=== PATIENT | female | born 1940 | race Caucasian/White ===

== ENCOUNTER 2017-10-14 14:09 | Observation (INO) | payer MEDICARE, BC ==
[~2017-10-14] VITALS: Ht 175.3 cm; Wt 88.6 kg
[~2017-10-14 14:09] MED LIST: AZIT250; CITA20 PO; CYAN1000I IM; Calcium 600 MG1 EACH PO; FLUO20 PO; HYDACE5 PO; LEVO-T50 MCG PO; NITR100CA PO; OMEP20ER PO; PRAV10 PO; PROM25 PO; Percocet 5-3251 EACH PO; Prozac20 MG PO; Pyridium200 MG PO; TIOT18 INH; TOCO400 PO; Vitamin B-122000 MCG PO; Vitamin D2000 UNIT PO; ZYRTEC10 M2 PO
[2017-10-14] MEDS ORDERED: ALBU2.5V5 (15:39)
[2017-10-14 16:06] LABS: BASOPHILS ABSOLUTE AUTO 0.04 K/mm3 (0.00-0.23); BASOPHILS PERCENT AUTO 0 % (0-2); EOSINOPHILS ABSOLUTE AUTO 0.42 K/mm3 (0.00-0.68); EOSINOPHILS PERCENT AUTO 4 % (0-6); Hematocrit 38.5 % (33.0-51.0); Hemoglobin 12.7 g/dL (11.5-16.0); IMMATURE GRAN ABSOLUTE AUTO 0.06 K/mm3 (0.00-0.10); IMMATURE GRAN PERCENT AUTO 1 % (0-1); LYMPHOCYTES ABSOLUTE AUTO 1.34 K/mm3 (0.84-5.20); LYMPHOCYTES PERCENT AUTO 13 % (21-46); MONOCYTES ABSOLUTE AUTO 0.52 K/mm3 (0.16-1.47); MONOCYTES PERCENT AUTO 5 % (4-13); Mean Corpuscular HGB 30.7 pg (26.0-34.0); Mean Corpuscular Volume 93 fL (80-100); NEUTROPHILS ABSOLUTE AUTO 7.84 K/mm3 (1.96-9.15); NEUTROPHILS PERCENT AUTO 77 % (41-73); Platelet Count 242 K/mm3 (150-400); RDW Coefficient Variation 13.3 % (11.7-14.2); RDW Standard Deviation 45.1 fL (35.1-46.3); Red Blood Cell Count 4.14 M/mm3 (3.80-5.20); White Blood Cell Count 10.22 K/mm3 (4.00-11.30)
[2017-10-14 16:30] LABS: Alanine Aminotransfer (ALT/SGP 19 U/L (12-78); Albumin, Blood 3.9 g/dL (3.4-5.0); Albumin/Globulin Ratio 1.4 (0.8-1.8); Alk Phos 95 U/L (50-136); Anion Gap 9 mmol/L (6-16); Aspartate Aminotrans (AST/SGOT 14 U/L (12-37); Bilirubin, Total 0.4 mg/dL (0.1-1.0); Blood Urea Nitrogen 22 mg/dL (8-24); Bun/Creatinine Ratio 17.7 (12.0-20.0); CO2, Blood 23 mmol/L (21-32); Calcium, Blood 9.3 mg/dL (8.5-10.1); Chloride, Blood 109 mmol/L (98-108); Creatinine, Blood 1.24 mg/dL (0.40-1.00); Globulin, Blood 2.7 g/dL (2.2-4.0); Glomerular Filtration Rate 44 (60-); Glucose, Blood 94 mg/dL (70-99); Potassium, Blood 4.1 mmol/L (3.5-5.5); Sodium, Blood 141 mmol/L (136-145); Total Protein, Blood 6.6 g/dL (6.4-8.2); Troponin I <0.015 ng/mL (0.000-0.040)
[2017-10-14 16:50] LABS: Source, Urine Clean Catch
[2017-10-14 16:54] LABS: Bilirubin, Urine Neg (Neg); Blood, Urine Neg (Neg); Glucose Qualitative, Urine Neg (Neg); Ketones, Urine Neg (Neg); Leukocyte Esterase, Urine Neg (Neg); Nitrite, Urine Neg (Neg); Protein, Urine Neg (Neg); Urobilinogen, Urine NORM (Normal)
[2017-10-14 17:26] LABS: Appearance, Urine Clear (Clear); Color, Urine Pale Yellow (P-Yellow)
[2017-10-15 05:57] LABS: BASOPHILS ABSOLUTE AUTO 0.06 K/mm3 (0.00-0.23); BASOPHILS PERCENT AUTO 1 % (0-2); EOSINOPHILS ABSOLUTE AUTO 0.57 K/mm3 (0.00-0.68); EOSINOPHILS PERCENT AUTO 6 % (0-6); Hematocrit 38.1 % (33.0-51.0); Hemoglobin 12.8 g/dL (11.5-16.0); IMMATURE GRAN ABSOLUTE AUTO 0.05 K/mm3 (0.00-0.10); IMMATURE GRAN PERCENT AUTO 1 % (0-1); LYMPHOCYTES ABSOLUTE AUTO 1.91 K/mm3 (0.84-5.20); LYMPHOCYTES PERCENT AUTO 19 % (21-46); MONOCYTES ABSOLUTE AUTO 0.94 K/mm3 (0.16-1.47); MONOCYTES PERCENT AUTO 9 % (4-13); Mean Corpuscular HGB 30.5 pg (26.0-34.0); Mean Corpuscular HGB Conc 33.6 g/dL (31.5-36.5); Mean Corpuscular Volume 91 fL (80-100); Mean Platelet Volume 9.4 fL (9.1-12.4); NEUTROPHILS ABSOLUTE AUTO 6.43 K/mm3 (1.96-9.15); NEUTROPHILS PERCENT AUTO 65 % (41-73); Platelet Count 216 K/mm3 (150-400); RDW Coefficient Variation 13.2 % (11.7-14.2); RDW Standard Deviation 43.6 fL (35.1-46.3); Red Blood Cell Count 4.19 M/mm3 (3.80-5.20); White Blood Cell Count 9.96 K/mm3 (4.00-11.30)
[2017-10-15 06:39] LABS: Albumin, Blood 3.3 g/dL (3.4-5.0); Albumin/Globulin Ratio 1.2 (0.8-1.8); Bilirubin, Total 0.4 mg/dL (0.1-1.0); Bun/Creatinine Ratio 18.3 (12.0-20.0); Calcium, Blood 8.8 mg/dL (8.5-10.1); Creatinine, Blood 1.15 mg/dL (0.40-1.00); Globulin, Blood 2.8 g/dL (2.2-4.0); Potassium, Blood 4.5 mmol/L (3.5-5.5); Total Protein, Blood 6.1 g/dL (6.4-8.2)
[2017-10-16 06:09] LABS: Hematocrit 34.3 % (33.0-51.0); Hemoglobin 11.8 g/dL (11.5-16.0); Mean Corpuscular HGB 33.4 pg (26.0-34.0); Mean Corpuscular HGB Conc 34.4 g/dL (31.5-36.5); Mean Platelet Volume 10.1 fL (9.1-12.4); Platelet Count 195 K/mm3 (150-400); RDW Coefficient Variation 15.1 % (11.7-14.2); Red Blood Cell Count 3.53 M/mm3 (3.80-5.20); White Blood Cell Count 7.26 K/mm3 (4.00-11.30)
[2017-10-16 06:10] LABS: Mean Corpuscular Volume 97 fL (80-100)
[2017-10-16 06:27] LABS: Bun/Creatinine Ratio 16.8 (12.0-20.0); Calcium, Blood 8.3 mg/dL (8.5-10.1); Creatinine, Blood 1.19 mg/dL (0.40-1.00); Potassium, Blood 4.4 mmol/L (3.5-5.5)
[2017-10-16] MEDS ORDERED: ASPI81CH PO (11:24)
== END 2017-10-16 13:01 | disposition home or self-care (01) ==
LOC: ER 14:09 → MEDS 14:10 → ENPENDDIS 10-16 10:00 → MEDS 10-16 13:01
PROVIDERS: Emergency Medicine; Internal Medicine
DX: R55 Syncope and collapse (principal); S93.401A Sprain of unspecified ligament of right ankle, initial encounter; N18.3 Chronic kidney disease, stage 3 (moderate); I77.9 Disorder of arteries and arterioles, unspecified; M54.9 Dorsalgia, unspecified; F32.9 Major depressive disorder, single episode, unspecified; G89.29 Other chronic pain; Z88.0 Allergy status to penicillin; Z88.1 Allergy status to other antibiotic agents; Z88.5 Allergy status to narcotic agent; Z88.8 Allergy status to other drugs, medicaments and biological substances; Z79.82 Long term (current) use of aspirin; Z79.899 Other long term (current) drug therapy; Z87.891 Personal history of nicotine dependence
CPT/HCPCS: 29515; 36415; 71046; 73610; 80048; 80053; 81003; 82533; 84484; 85025; 85027; 93005; 93010; 93306; 93880; 94640; 94760; 96361; 96372; 96374; 97116; 97162; 97530; 99285; G0378; G8978; G8979; J1650; J3010; J7030; L1906

== ENCOUNTER 2019-04-05 12:27 | Emergency (ER) | payer MEDICARE, OTHER ==
[~2019-04-05] VITALS: Ht 177.8 cm; Wt 86.2 kg
[~2019-04-05 12:27] MED LIST changes: +ALBU2.5V5 INH; +ASPI81CH PO
[2019-04-05 12:55] LABS: Calcium, Ionized (POC) 1.14 mmol/L (1.10-1.46); Chloride (POC) 111 mmol/L (98-108); Creatinine (POC) 1.7 mg/dL (0.6-1.0); Glucose (ISTAT POC) 78 mg/dL (70-99); Hemoglobin (POC) 10.5 g/dL (12.0-16.0); Potassium (POC) 3.9 mmol/L (3.5-5.5); Sodium (POC) 140 mmol/L (135-148); Total CO2 (POC) 19 mmol/L (21-32)
== END 2019-04-05 14:19 | disposition home or self-care (01) ==
LOC: ER 12:27
DX: R55 Syncope and collapse (principal); R42 Dizziness and giddiness; Z88.5 Allergy status to narcotic agent; Z88.0 Allergy status to penicillin; Z88.1 Allergy status to other antibiotic agents; Z79.899 Other long term (current) drug therapy; Z79.82 Long term (current) use of aspirin; J44.9 Chronic obstructive pulmonary disease, unspecified; E03.9 Hypothyroidism, unspecified
CPT/HCPCS: 36415; 80047; 85014; 93005; 93010; 99284-25

== ENCOUNTER → 2021-01-24 | Outpatient (CLI) | payer MEDICARE, OTHER | LOC: LAB 10:50 → LAB SHORT 10:50 | DX: L08.9 Local infection of the skin and subcutaneous tissue, unspecified (principal); Z71.89 Other specified counseling | CPT/HCPCS: 87070; 87205 ==

== ENCOUNTER → 2021-10-09 | Outpatient (CLI) | payer MEDICARE | LOC: LAB SHORT 14:40 → PLD 14:40 | DX: C44.629 Squamous cell carcinoma of skin of left upper limb, including shoulder (principal); L30.8 Other specified dermatitis | CPT/HCPCS: 88312 ==

== ENCOUNTER 2022-03-04 08:19 | Day surgery (SDC) | payer MEDICARE ==
[~2022-03-04] VITALS: Ht 171.5 cm; Wt 77.5 kg
[~2022-03-04 08:19] MED LIST changes: +BENADRYL25 MG PO; +EUTHYROX50 MCG PO; +GABA300 PO; +INCRUSE ELLIPTA INH; -LEVO-T50 MCG PO; +MYRBETRIQ50 MG PO; +SERT50 PO; +TRAM50 PO; +TURMERIC500 M2 PO; +VITAMIN B125000 MC1 PO; +ZOCOR20 MG PO
--- NOTE | 2022-03-04 11:50 | NUR ---
Ambulatory in Day Surgery History, Chart, Medications and Allergies reviewed before start of procedure.Patient confirms NPO status and agrees with scheduled surgery. Pre-Op teaching done. Pt verbalizes understanding.
--- NOTE | 2022-03-04 12:05 | NUR ---
[facility] 2G SENT TO SURGERY C PT. 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 CONFIRMED WITH DR GONZALEZ ANCEF IS SAFE TO GIVE.
--- NOTE | 2022-03-04 13:24 | NUR ---
03/04/22 1324 Robert Davila RASH NOTED ON LOWER ABD AND RIGHT THIGH
--- NOTE | 2022-03-04 17:30 | NUR ---
ELEVATED BLOOD PRESSURE PT HAD ELEVATED BLOOD PRESSURE POST OP, PT ASYMPTOMATIC. PT DENIED PAIN BUT REPORTED HAVING A STRESSFUL DAY. SHE ALSO DENIES HX OF HTN. SHE STATES HER BP IS NORMALLY LOW. AT TIME OF ARRIVAL TO THE ROOM HER BP WAS 184/73. MONITORED BY FOR SOME TIME AFTER PT ARRIVED, BP REMAINED ELEVATED AND DR. GONAZLEZ NOTIFIED. DR. GONZALEZ STATED OK FOR HOSPITALIST CONSULT. BP BEGAN TO DROP AND AT 1722 WAS 156/72. DR. GONZALEZ WAS AGAIN NOTIFIED AND HOSPITALIS CONSULT WAS CANCELLED SINCE BP IMPROVED.
--- NOTE | 2022-03-04 18:31 | NUR ---
PT ARRIVED TO THE UNIT AT 1525. PT ALERT AND ORIENTED AT TIME OF ARRIVAL. PT HAD DECREASED SENSATION AND MOVEMENT TO BLE R/T SPINAL ANESTHESIA, SENSATION AND MOVEMENT IMPROVING. BP ELEVATED, DR. GONZALEZ WAS NOTIFIED. ORDER TO CONSULT HOSPITALIST, BP IMPROVED AND HOSPITALIST CONSULT CANCELLED. WILL CONTINUE TO MONITOR UNTIL REPORT TO NOC RN.
--- NOTE | 2022-03-04 20:04 | NUR ---
SHIFT SUMMARY PT IS POD#0 FROM L TKA WITH DR. GONZALEZ. PAIN HAS BEEN DIFFICULT TO MANAGE, PT WAS GIVEN OXYCODONE 5MG, PT REPORTED NO IMPROVEMENT IN PAIN. FENTANYL GIVEN FOR PAIN, PT AGAIN REPORTED NO IMPROVMENT; HOWEVER, SHE APPEARED MUCH LESS RESTLESS IN BED, AND SHE WAS SMILING AND LAUGHING WITH STAFF. PT TOLERATING PO; SHE DID REPORT MILD NAUSEA AFTER TAKING OXYCODONE, PT REPORTS THAT RESOLVED WITHOUT INTERVENTION. REPORT GIVEN TO LEIGH MCDONNELL RN.
--- NOTE | 2022-03-04 21:33 | NUR ---
BP: PT BP REMAINS ELEVATED DESPITE BEING MEDICATED FOR LLE PAIN. PT DENIES CP/PRESSURE/SOB. HOSPITALIST CONSULT PLACED, DR LOAIZA NOTIFIED. NEW ORDER FOR 1X DOSE OF HYDRALAZINE.
[2022-03-05 04:57] LABS: BASOPHILS ABSOLUTE AUTO 0.05 K/mm3 (0.00-0.23); BASOPHILS PERCENT AUTO 1 % (0-2); EOSINOPHILS ABSOLUTE AUTO 0.54 K/mm3 (0.00-0.68); EOSINOPHILS PERCENT AUTO 6 % (0-6); Hematocrit 34.1 % (33.0-51.0); Hemoglobin 10.6 g/dL (11.5-16.0); IMMATURE GRAN ABSOLUTE AUTO 0.04 K/mm3 (0.00-0.10); IMMATURE GRAN PERCENT AUTO 0 % (0-1); LYMPHOCYTES ABSOLUTE AUTO 0.94 K/mm3 (0.84-5.20); LYMPHOCYTES PERCENT AUTO 10 % (21-46); MONOCYTES ABSOLUTE AUTO 0.65 K/mm3 (0.16-1.47); MONOCYTES PERCENT AUTO 7 % (4-13); Mean Corpuscular HGB Conc 31.1 g/dL (31.5-36.5); Mean Corpuscular Volume 100 fL (80-100); Mean Platelet Volume 9.3 fL (9.1-12.4); NEUTROPHILS ABSOLUTE AUTO 6.81 K/mm3 (1.96-9.15); NEUTROPHILS PERCENT AUTO 75 % (41-73); Platelet Count 264 K/mm3 (150-400); RDW Coefficient Variation 14.4 % (11.7-14.2); RDW Standard Deviation 52.5 fL (35.1-46.3); Red Blood Cell Count 3.42 M/mm3 (3.80-5.20); White Blood Cell Count 9.03 K/mm3 (4.00-11.30)
[2022-03-05 05:11] LABS: Bun/Creatinine Ratio 12.6 (12.0-20.0); Calcium, Blood 8.3 mg/dL (8.5-10.1); Creatinine, Blood 1.59 mg/dL (0.40-1.00); Potassium, Blood 4.6 mmol/L (3.5-5.5)
--- NOTE | 2022-03-05 08:00 | NUR ---
POD 1 S/P L TKA. PT BP ELEVATED EARLY IN SHIFT, HOSPITALIST CONSULTED, PT MEDICATED W/NEW BP MEDS W/NOTED IMPROVEMENT. DRESSING CDI. PT DENIED N/V, CAP REFILL WNL. PT STRUGGLED W/PAIN MGMT. PAIN MGD W/2 OXYCODONE, PT DID REQ IV BREAKTHROUGH PAIN MEDS X2 DURING NIGHT. PT REPOSITIONED FOR COMFORT. PT DEAN REG PO, DENEID N/V, IS VOIDING URINE W/O DIFFICULTY. PLAN TO MOBILIZE W/PT AND D/C HOME.
[2022-03-05] MEDS ORDERED: OXYC5 PO (12:55)
[2022-03-05] MEDS ORDERED: ACET500 PO (12:57)
--- NOTE | 2022-03-05 13:13 | NUR ---
IV LFA D/C'D INTACT, SITE CLEAR.
--- NOTE | 2022-03-05 13:30 | NUR ---
PATIENT D/C'D HOME AT THIS TIME, STATES UNDERSTANDING OF MEDS, WOUND CARE, ACTIVITY, OP PT, FOLLOW UP APPT, ETC, NO C/O AT THIS TIME.
--- NOTE | 2022-03-05 14:30 | NUR ---
DR. NEWSOME NOTIFIED THAT PT DISCHARGED. HE STATED HE HAD TALKED WITH THE PATIENT ABOUT HER ELEVATED BLOOD PRESSURE AND EDUCATED HER TO FOLLOW UP WITH HER PRIMARY CARE DOCTOR REGARDING ELEVATED BLOOD PRESSURE.
== END 2022-03-05 13:30 | disposition home or self-care (01) ==
LOC: ORSCMMR 08:19 → SURS 08:19 → ORSCMMR 08:22 → ORD 11:00 → ORSCMMR 14:15 → ORD 14:15 → SURS 15:26 → ORSCMMR 03-05 13:30
PROVIDERS: Orthopaedic Surgery
PROC: 8E0Y0CZ Robotic Assisted Procedure of Lower Extremity, Open Approach (ICD-10-PCS; principal; 2022-03-04 13:00)
PROC: 0SRD0JA Replacement of Left Knee Joint with Synthetic Substitute, Uncemented, Open Approach (ICD-10-PCS; principal; 2022-03-04 13:00)
DX: M17.12 Unilateral primary osteoarthritis, left knee (principal); N18.9 Chronic kidney disease, unspecified; I25.10 Atherosclerotic heart disease of native coronary artery without angina pectoris; E03.9 Hypothyroidism, unspecified; J44.9 Chronic obstructive pulmonary disease, unspecified; Z86.16 Personal history of COVID-19; Z79.899 Other long term (current) drug therapy
CPT/HCPCS: 27447; 20985; S2900; 36415; 73560-LT; 80048; 83735; 85025; 94640; 94664; 97110; 97116; 97161; 97530; A9270; C1776; J0171; J0360; J0690; J0735; J1170; J1885; J2405; J2704; J2795; J3010; J7120

== ENCOUNTER 2022-03-11 15:14 | Emergency (ER) | payer MEDICARE ==
[~2022-03-11] VITALS: Ht 167.6 cm; Wt 74.8 kg
[~2022-03-11 15:14] MED LIST changes: +ACET500 PO; +OXYC5 PO
[2022-03-11 16:58] LABS: Bun/Creatinine Ratio 16.9 (12.0-20.0); Calcium, Blood 8.7 mg/dL (8.5-10.1); Creatinine, Blood 1.6 mg/dL (0.40-1.00); Potassium, Blood 4.1 mmol/L (3.5-5.5)
[2022-03-11 17:50] LABS: BASOPHILS ABSOLUTE AUTO 0.07 K/mm3 (0.00-0.23); BASOPHILS PERCENT AUTO 1 % (0-2); EOSINOPHILS ABSOLUTE AUTO 1.05 K/mm3 (0.00-0.68); EOSINOPHILS PERCENT AUTO 9 % (0-6); Hematocrit 32.2 % (33.0-51.0); Hemoglobin 10.4 g/dL (11.5-16.0); IMMATURE GRAN ABSOLUTE AUTO 0.11 K/mm3 (0.00-0.10); IMMATURE GRAN PERCENT AUTO 1 % (0-1); LYMPHOCYTES ABSOLUTE AUTO 1.09 K/mm3 (0.84-5.20); LYMPHOCYTES PERCENT AUTO 9 % (21-46); MONOCYTES ABSOLUTE AUTO 1.01 K/mm3 (0.16-1.47); MONOCYTES PERCENT AUTO 9 % (4-13); Mean Corpuscular HGB 31.2 pg (26.0-34.0); Mean Corpuscular HGB Conc 32.3 g/dL (31.5-36.5); Mean Corpuscular Volume 97 fL (80-100); Mean Platelet Volume 9.1 fL (9.1-12.4); NEUTROPHILS ABSOLUTE AUTO 8.36 K/mm3 (1.96-9.15); NEUTROPHILS PERCENT AUTO 72 % (41-73); Platelet Count 341 K/mm3 (150-400); RDW Coefficient Variation 13.6 % (11.7-14.2); RDW Standard Deviation 48.3 fL (35.1-46.3); Red Blood Cell Count 3.33 M/mm3 (3.80-5.20); White Blood Cell Count 11.69 K/mm3 (4.00-11.30)
== END 2022-03-11 18:16 | disposition home or self-care (01) ==
LOC: ER 15:14
PROVIDERS: Student in an Organized Health Care Education/Training Program
DX: I95.1 Orthostatic hypotension (principal); D64.9 Anemia, unspecified; N28.9 Disorder of kidney and ureter, unspecified; R42 Dizziness and giddiness; E03.9 Hypothyroidism, unspecified; J44.9 Chronic obstructive pulmonary disease, unspecified; Z88.5 Allergy status to narcotic agent; Z88.0 Allergy status to penicillin; Z88.1 Allergy status to other antibiotic agents; Z88.8 Allergy status to other drugs, medicaments and biological substances; Z91.09 Other allergy status, other than to drugs and biological substances; Z79.890 Hormone replacement therapy; Z79.82 Long term (current) use of aspirin; Z79.899 Other long term (current) drug therapy
CPT/HCPCS: 80048; 85025; 93005; 93010; 99284-25

== ENCOUNTER 2022-04-03 10:06 | Day surgery (SDC) | payer MEDICARE ==
[~2022-04-03] VITALS: Ht 175.3 cm; Wt 74.3 kg
[2022-04-03] MEDS ORDERED: TRAM50 (10:35)
[2022-04-03] MEDS ORDERED: MYRBETRIQ50 MG (10:37)
[2022-04-03] MEDS ORDERED: GABA300 (10:37)
--- NOTE | 2022-04-03 12:09 | NUR ---
04/03/22 1209 JUANCHO LEI- 48, 52 USED
== END 2022-04-03 12:33 | disposition home or self-care (01) ==
LOC: ORSCSDS 10:06
PROVIDERS: Internal Medicine Gastroenterology
PROC: 0D748ZZ Dilation of Esophagogastric Junction, Via Natural or Artificial Opening Endoscopic (ICD-10-PCS; principal; 2022-04-03 11:30)
DX: R13.10 Dysphagia, unspecified (principal); K22.2 Esophageal obstruction; I25.10 Atherosclerotic heart disease of native coronary artery without angina pectoris; J44.9 Chronic obstructive pulmonary disease, unspecified; Z87.891 Personal history of nicotine dependence; N18.9 Chronic kidney disease, unspecified; E03.9 Hypothyroidism, unspecified; Z79.899 Other long term (current) drug therapy; Z79.82 Long term (current) use of aspirin
CPT/HCPCS: C1726; J2704; J7120

== ENCOUNTER 2023-01-08 20:40 | Emergency (ER) | payer MEDICARE ==
[~2023-01-08] VITALS: Ht 172.7 cm; Wt 82.5 kg
[~2023-01-08 20:40] MED LIST changes: +GABA300; +MYRBETRIQ50 MG; +TRAM50
[2023-01-08 21:35] LABS: BASOPHILS ABSOLUTE AUTO 0.05 K/mm3 (0.00-0.23); BASOPHILS PERCENT AUTO 0 % (0-2); EOSINOPHILS ABSOLUTE AUTO 0.22 K/mm3 (0.00-0.68); EOSINOPHILS PERCENT AUTO 1 % (0-6); Hematocrit 26.1 % (33.0-51.0); Hemoglobin 9.7 g/dL (11.5-16.0); IMMATURE GRAN ABSOLUTE AUTO 0.54 K/mm3 (0.00-0.10); IMMATURE GRAN PERCENT AUTO 2 % (0-1); LYMPHOCYTES ABSOLUTE AUTO 0.52 K/mm3 (0.84-5.20); LYMPHOCYTES PERCENT AUTO 2 % (21-46); MONOCYTES ABSOLUTE AUTO 0.71 K/mm3 (0.16-1.47); MONOCYTES PERCENT AUTO 3 % (4-13); Mean Corpuscular HGB Conc 37.2 g/dL (31.5-36.5); Mean Corpuscular Volume 100 fL (80-100); Mean Platelet Volume 10.2 fL (9.1-12.4); NEUTROPHILS ABSOLUTE AUTO 20.31 K/mm3 (1.96-9.15); NEUTROPHILS PERCENT AUTO 91 % (41-73); Platelet Count 224 K/mm3 (150-400); RDW Standard Deviation 48.2 fL (35.1-46.3); Red Blood Cell Count 2.62 M/mm3 (3.80-5.20); White Blood Cell Count 22.35 K/mm3 (4.00-11.30)
[2023-01-08 21:50] LABS: Albumin, Blood 2.9 g/dL (3.4-5.0); Bun/Creatinine Ratio 23.7 (12.0-20.0); Calcium, Blood 8.4 mg/dL (8.5-10.1); Creatinine, Blood 1.52 mg/dL (0.40-1.00); Globulin, Blood 2.9 g/dL (2.2-4.0); Potassium, Blood 4.4 mmol/L (3.5-5.5); Total Protein, Blood 5.8 g/dL (6.4-8.2)
[2023-01-09] MEDS ORDERED: Doxycycline Mo100 M1 PO (01:19)
[2023-01-09 01:34] VITALS: BP 112/59
== END 2023-01-09 02:07 | disposition home or self-care (01) ==
LOC: ER 20:40
PROVIDERS: Emergency Medicine
DX: J18.9 Pneumonia, unspecified organism (principal); Z88.0 Allergy status to penicillin; Z88.5 Allergy status to narcotic agent; Z88.2 Allergy status to sulfonamides; Z88.8 Allergy status to other drugs, medicaments and biological substances; Z79.82 Long term (current) use of aspirin; Z79.890 Hormone replacement therapy; Z79.899 Other long term (current) drug therapy; Z87.891 Personal history of nicotine dependence; J44.9 Chronic obstructive pulmonary disease, unspecified; N18.30 Chronic kidney disease, stage 3 unspecified
CPT/HCPCS: 71045; 71260; 74177; 80053; 84484; 85025; 93005; 93010; 99285-25; A9270; Q9967

== ENCOUNTER → 2023-03-28 | Outpatient (CLI) | payer MEDICARE ==
[~2023-03-28] MED LIST changes: +Doxycycline Mo100 M1 PO
== END ==
LOC: LAB 16:54 → LAB SHORT 16:54
DX: L08.9 Local infection of the skin and subcutaneous tissue, unspecified (principal); R60.0 Localized edema; L97.819 Non-pressure chronic ulcer of other part of right lower leg with unspecified severity; L30.4 Erythema intertrigo
CPT/HCPCS: 87070; 87077; 87186; 87205

== ENCOUNTER 2023-12-10 10:03 | Day surgery (SDC) | payer OTHER ==
[~2023-12-10] VITALS: Ht 172.7 cm; Wt 69.0 kg
[~2023-12-10 10:03] MED LIST changes: +ALUMINUM H320 MG/5 M PO; +Amlodipine Bes2.5 MG PO; +Atarax10 MG PO; +B-COMPLEX WITH1 EACH PO; +DOCUZEN 8.6-501 EACH PO; +FAMO20 PO; -GABA300; +Lactated Ringer's 1,000 ML IV ONE; +NYAMYC15 G1 TOP; +Vitamin D1000 UNI1 PO
[2023-12-10] MEDS ORDERED: propofoL 50 ML IV ONE (11:56)
[2023-12-10] MEDS ORDERED: Lactated Ringer's 1,000 ML IV ONE (11:59)
[2023-12-10 15:28] VITALS: BP 174/81
--- NOTE | 2023-12-10 15:39 | NUR ---
12/10/23 1539 CristobalNeeta S PT. WAS C/O HER IV SITE WAS HURTING. PT. VERBALIZES THEY HAD TO POKE HER TWICE TO GET AN IV. PT. VERBALIZED IT WAS HURTING. DURING PROCEDURE PT. ALSO C/O SITE HURTING WHEN PROPOFOL WAS GOING IN. LOOKED A LITTLE PUFFY, PRESSURE WAS HELD AROUND IV SITE & PUFFY WOULD GO AWAY. PT. WAS GETTING SLEEPY, ANESTHESIA SAID IV WAS RUNNING FINE. PT. TO SD & WANTING IV OUT. SITE A LITTLE RED WITH SMALL AMT. SWELLING, IV DC'D & PRESSURE HELD, SITE WRAPPED WITH COBAN & GAUZE. WARM PACK APPLIED. PT. VERBALIZES THAT FELT GOOD. INSTRUCTED PT. SHE COULD USE A WARM PACK ON IT AT HOME IF NEEDED. PT. VERBALIZED SHE WAS GOING TO TAKE SOME TRAMADOL. PT. HAD VERY THIN FRAGILE DISCOLORED SKIN ON BILAT ARMS.
== END 2023-12-10 13:03 | disposition home or self-care (01) ==
LOC: ORSCSDS 10:03
PROVIDERS: Internal Medicine Gastroenterology
PROC: 0DJ08ZZ Inspection of Upper Intestinal Tract, Via Natural or Artificial Opening Endoscopic (ICD-10-PCS; principal; 2023-12-10 11:15)
DX: R13.10 Dysphagia, unspecified (principal); K44.9 Diaphragmatic hernia without obstruction or gangrene; J44.9 Chronic obstructive pulmonary disease, unspecified; I73.9 Peripheral vascular disease, unspecified; I12.9 Hypertensive chronic kidney disease with stage 1 through stage 4 chronic kidney disease, or unspecified chronic kidney disease; F32.A Depression, unspecified; D36.9 Benign neoplasm, unspecified site; N18.9 Chronic kidney disease, unspecified; Z79.82 Long term (current) use of aspirin; Z79.899 Other long term (current) drug therapy
CPT/HCPCS: J2704; J7120

== ENCOUNTER 2024-09-06 10:58 | Emergency (ER) | payer OTHER ==
[~2024-09-06] VITALS: Ht 172.7 cm; Wt 63.5 kg
[~2024-09-06 10:58] MED LIST changes: -Lactated Ringer's 1,000 ML IV ONE
[2024-09-06 11:31] LABS: BASOPHILS ABSOLUTE AUTO 0.06 K/mm3 (0.00-0.23); BASOPHILS PERCENT AUTO 0 % (0-2); EOSINOPHILS ABSOLUTE AUTO 0.37 K/mm3 (0.00-0.68); EOSINOPHILS PERCENT AUTO 2 % (0-6); Hematocrit 30.6 % (33.0-51.0); Hemoglobin 10.1 g/dL (11.5-16.0); IMMATURE GRAN ABSOLUTE AUTO 0.19 K/mm3 (0.00-0.10); IMMATURE GRAN PERCENT AUTO 1 % (0-1); LYMPHOCYTES ABSOLUTE AUTO 0.93 K/mm3 (0.84-5.20); LYMPHOCYTES PERCENT AUTO 6 % (21-46); MONOCYTES ABSOLUTE AUTO 0.93 K/mm3 (0.16-1.47); MONOCYTES PERCENT AUTO 6 % (4-13); Mean Corpuscular HGB 33.2 pg (26.0-34.0); Mean Corpuscular Volume 101 fL (80-100); Mean Platelet Volume 8.6 fL (9.1-12.4); NEUTROPHILS ABSOLUTE AUTO 12.97 K/mm3 (1.96-9.15); NEUTROPHILS PERCENT AUTO 84 % (41-73); Platelet Count 411 K/mm3 (150-400); RDW Coefficient Variation 13.7 % (11.7-14.2); RDW Standard Deviation 50.6 fL (35.1-46.3); Red Blood Cell Count 3.04 M/mm3 (3.80-5.20); White Blood Cell Count 15.45 K/mm3 (4.00-11.30)
[2024-09-06 12:00] LABS: Albumin, Blood 3.4 g/dL (3.4-5.0); Albumin/Globulin Ratio 1.1 (0.8-1.8); Bilirubin, Total 1.1 mg/dL (0.1-1.0); Bun/Creatinine Ratio 23.1 (12.0-20.0); Calcium, Blood 8.8 mg/dL (8.5-10.1); Creatinine, Blood 1.73 mg/dL (0.40-1.00); Potassium, Blood 4.5 mmol/L (3.5-5.5); Total Protein, Blood 6.4 g/dL (6.4-8.2)
[2024-09-06] MEDS ORDERED: HYDCHL25 PO (15:20)
[2024-09-06] MEDS ORDERED: PROAIR RESPICL90 MCG INH (15:22)
[2024-09-06 16:05] LABS: Source, Urine Clean Catch
[2024-09-06 16:07] LABS: Appearance, Urine Hazy (Clear); Bilirubin, Urine Neg (Neg); Blood, Urine Neg (Neg); Color, Urine Yellow (P-Yellow); Glucose Qualitative, Urine Neg (Neg); Ketones, Urine Neg (Neg); Leukocyte Esterase, Urine 1+ (Neg); Nitrite, Urine Neg (Neg); Protein, Urine 1+ (Neg); Urobilinogen, Urine 1+ (Normal)
[2024-09-06 16:35] LABS: Hyaline Casts 0-2 /lpf (0-2)
[2024-09-06 16:36] LABS: Bacteria Mod /hpf; Calcium Oxalate Crystals Many /hpf; Red Blood Cells, Urine 0-2 /hpf (0-2); Squamous Epithelial Cells Few /hpf (Few)
[2024-09-06] MEDS ORDERED: Cephalexin Monohydrate 500 MG Cap PO ONE (17:55)
[2024-09-06] MEDS ORDERED: CEPH500 PO (18:00)
[2024-09-06 18:26] VITALS: BP 166/67
== END 2024-09-06 18:35 | disposition home or self-care (01) ==
LOC: ER 10:58
PROVIDERS: Physician Assistant; Student in an Organized Health Care Education/Training Program
DX: I95.1 Orthostatic hypotension (principal); N39.0 Urinary tract infection, site not specified; J44.9 Chronic obstructive pulmonary disease, unspecified; E03.9 Hypothyroidism, unspecified; Z91.81 History of falling; Z87.891 Personal history of nicotine dependence; Z88.5 Allergy status to narcotic agent; Z88.0 Allergy status to penicillin; Z88.1 Allergy status to other antibiotic agents; Z88.8 Allergy status to other drugs, medicaments and biological substances; Z91.048 Other nonmedicinal substance allergy status; Z79.82 Long term (current) use of aspirin; Z79.890 Hormone replacement therapy; Z79.899 Other long term (current) drug therapy
CPT/HCPCS: 80053; 81001; 83690; 85025; 93005; 93010; 99283; A9270